=== PATIENT | male | born 1935 | race Caucasian/White ===

== ENCOUNTER 2022-05-16 12:40 | Outpatient (CLI) | payer MEDICARE | END 2022-05-16 12:41 | disposition home or self-care (01) | LOC: CT 12:40 | PROVIDERS: ATTEND Family Medicine | DX: G45.9 Transient cerebral ischemic attack, unspecified (principal); R42 Dizziness and giddiness; R90.82 White matter disease, unspecified; G93.89 Other specified disorders of brain; I67.2 Cerebral atherosclerosis; I65.29 Occlusion and stenosis of unspecified carotid artery | CPT/HCPCS: 70450; 93880 ==

== ENCOUNTER 2023-01-28 06:16 | Inpatient (IN) | payer MEDICARE ==
[2023-01-27 16:16] VITALS: BMI 30.7
[2023-01-28] MEDS ORDERED: Lidocaine 1% MPF 2 ML VIAL ONE (06:38)
[2023-01-28] MEDS ORDERED: Albumin 5% 500 ML ONE (06:44)
[2023-01-28] MEDS ORDERED: Heparin 10,000 UNITS/1 ML VIAL 30,000 UNITS in Sodium Chloride 0.9% 1,000 ML FS SCH (07:00)
[2023-01-28 07:21] LABS: Hematocrit 39.7 % (42.0-52.0); Hemoglobin 12.7 g/dL (14.0-18.0); Mean Corpuscular Hemoglobin 29.7 pg (27.0-31.0); Mean Platelet Volume 10.5 fL (7.4-10.4); Platelet Count 156 10x3/uL (130-400); RBC Distribution Width 13.8 % (11.5-14.5); Red Blood Cell (RBC) Count 4.27 mill/uL (4.70-6.10); White Blood Cell (WBC) Count 5.5 10x3/uL (4.8-10.8)
[2023-01-28] MEDS ORDERED: Fentanyl 250 MCG/5 ML VIAL ONE (07:27)
[2023-01-28] MEDS ORDERED: Sodium Chloride 0.9% 100 ML ONE (07:28)
[2023-01-28] MEDS ORDERED: CEFAZOLIN 2 GM VIAL ONE (07:28)
[2023-01-28] MEDS ORDERED: Midazolam HCl 2 mg/2 ml Vial ONE ×2 (07:28→11:24)
[2023-01-28 07:43] LABS: Anion Gap 15 mmol/L (10-20); BUN (Urea Nitrogen) 18 mg/dL (8.4-25.7); Calc. Creatinine Clearance 71 mL/min (70-130); Calcium 9.2 mg/dL (7.8-10.44); Carbon Dioxide 22 mmol/L (23-31); Chloride 107 mmol/L (98-107); Estimated GFR 72; Glucose 135 mg/dL (83-110); Potassium 4.3 mmol/L (3.5-5.1); Sodium 140 mmol/L (136-145)
[2023-01-28] MEDS ORDERED: ePHEDrine Sulfate 50 MG/10 ML VIAL ONE (07:53)
[2023-01-28] MEDS ORDERED: Magnesium 5 GM/10 ML VIAL ONE (07:53)
[2023-01-28] MEDS ORDERED: Thrombin 5000 UNITS/5 ML VIAL ONE (07:53)
[2023-01-28] MEDS ORDERED: Calcium Chloride 1 GM/10 ML Abboject SYRINGE ONE (07:53)
[2023-01-28] MEDS ORDERED: Heparin 5,000 UNITS/ML VIAL ONE (07:53)
[2023-01-28] MEDS ORDERED: Papaverine 60 MG/2 ML VIAL ONE (07:53)
[2023-01-28] MEDS ORDERED: Lidocaine 2% PF 100 mg/5 ml Syringe ONE (07:53)
[2023-01-28] MEDS ORDERED: Norepinephrine 4 MG/4 ML VIAL ONE (07:53)
[2023-01-28] MEDS ORDERED: Sodium Bicarb 50 MEQ/50 ML VIAL ONE (07:53)
[2023-01-28] MEDS ORDERED: Mannitol 12.5 GM/50 ML ONE (07:53)
[2023-01-28] MEDS ORDERED: Nitroglycerin 50 MG/250 ML BOT ONE (07:53)
[2023-01-28] MEDS ORDERED: Protamine Sulfate 250 MG/25 ML VIAL ONE (07:53)
[2023-01-28] MEDS ORDERED: Aminocaproic Acid 5 GM/20 ML VIAL ONE (07:53)
[2023-01-28] MEDS ORDERED: Vecuronium 10 MG VIAL ONE (07:53)
[2023-01-28] MEDS ORDERED: Lidocaine 1% PF 5 ML VIAL ONE (07:53)
[2023-01-28] MEDS ORDERED: Vancomycin 1 GM VIAL ONE (07:53)
[2023-01-28] MEDS ORDERED: PROPOFOL 200 MG/20 ML VIAL ONE (07:53)
[2023-01-28] MEDS ORDERED: Cardioplegic Soln 1,000 ML BAG ONE (07:53)
[2023-01-28] MEDS ORDERED: Heparin 30,000 units/30 ml VIAL ONE (07:53)
[2023-01-28] MEDS ORDERED: Potassium Chloride 60 MEQ/30 ML VIAL ONE (07:53)
[2023-01-28] MEDS ORDERED: Rocuronium Bromide 10 MG/ML (10ML VIAL) ONE (07:53)
[2023-01-28] MEDS ORDERED: PHENYLEPHRINE-NS 100 MCG/ML 10 ML SYRINGE ONE ×2 (07:53→10:44)
[2023-01-28] MEDS ORDERED: Isoflurane INH ANEST 100 ML BOTTLE ONE (08:43)
[2023-01-28] MEDS ORDERED: Insulin Regular 300 UNITS/3 ML VIAL ONE (10:22)
[2023-01-28] MEDS ORDERED: Vasopressin 20 UNITS/ML VIAL ONE (11:24)
== END 2023-01-28 16:40 | disposition expired | DRG 235 ==
LOC: SURG A 06:16 → EDSTATUS 16:38
PROVIDERS: ADMIT Thoracic Surgery (Cardiothoracic Vascular Surgery); ATTEND Thoracic Surgery (Cardiothoracic Vascular Surgery)
PROC: 02100Z9 Bypass Coronary Artery, One Artery from Left Internal Mammary, Open Approach (ICD-10-PCS; principal; 2023-01-28)
PROC: 021009W Bypass Coronary Artery, One Artery from Aorta with Autologous Venous Tissue, Open Approach (ICD-10-PCS; 2023-01-28)
PROC: 06BQ0ZZ Excision of Left Saphenous Vein, Open Approach (ICD-10-PCS; 2023-01-28)
DX: I25.10 Atherosclerotic heart disease of native coronary artery without angina pectoris (principal); I71.00 Dissection of unspecified site of aorta; E78.5 Hyperlipidemia, unspecified; E78.00 Pure hypercholesterolemia, unspecified; I65.29 Occlusion and stenosis of unspecified carotid artery; I50.9 Heart failure, unspecified; E11.9 Type 2 diabetes mellitus without complications; I11.0 Hypertensive heart disease with heart failure; Z86.73 Personal history of transient ischemic attack (TIA), and cerebral infarction without residual deficits; Z98.890 Other specified postprocedural states; Z90.49 Acquired absence of other specified parts of digestive tract; Z82.49 Family history of ischemic heart disease and other diseases of the circulatory system; Z83.3 Family history of diabetes mellitus; Z80.9 Family history of malignant neoplasm, unspecified; Z79.82 Long term (current) use of aspirin; Z79.899 Other long term (current) drug therapy
CPT/HCPCS: 36416; 36430; 80048; 85027; 86850; 86900; 86901; A4311; C1751; C1769; C1776; C1889; C2615; J1642; J1644; J1815; J2001; J2150; J2250; J2440; J2704; J2720; J3010; J3370; J3475; J3480; J3490; P9016; P9045; S0017